=== PATIENT | female | born 1960 | race Caucasian/White ===

== ENCOUNTER → 2020-02-26 | Outpatient (CLI) | payer OTHER ==
[~2020-02-26] VITALS: Ht 165.1 cm; Wt 77.1 kg
[~2020-02-26] MED LIST: LORCET 5-325 M1 EACH PO; PRISTIQ50 M1 PO
[2020-02-26 13:23] VITALS: BP 115/59
--- NOTE | 2020-02-26 14:26 | NUR ---
Pain Clinic Assessment: 1. History of Osteoarthritis: SPINE History of Rheumatoid Arthritis: Not Applicable 2. Height: 5 ft. 5 in. 165.1 cm. Weight: 170.0 lb. oz. 77.112 kg. Patient's BMI: 28.3 3. Vital Signs: BP: 115/59 Pulse: 85 Resp: 16 Temp: 02 Sat: 100 ECG Mon: 4. Pain Intensity: 8 5. Fall Risk: Dizziness: N Needs help standing or walking: N Fallen in the last 3 months: N Fall risk comments: 6. Patient on Blood Thinner: None 7. History of Hypertension: N 8. Opioid Therapy greater than 6 weeks: N Opiate Contract Signed: 9. Risk Assessment Tool Provided: LOW 10. Functional Assessment Tool: 11. Recreational Drug Use: Never Drug Type: Tobacco Use: Current Every Day Smoker Tobacco Type: Cigarettes Amount or Packs/day: 1/2-1 How Many Years: 25 Alcohol Use: Yes Frequency: Special Occasions Quant: 1-2
--- NOTE | 2020-03-05 13:25 | HPC ---
[facility] [place] [address] PAIN MANAGEMENT CONSULTATION Name: TOMEKA CELESET Room #: [facility]#: [id number] Admission: 02/26/20 Attend Phys: Tarah Mendosa MD Discharge: Date of : 64 Report #: [id number] THIS REPORT FOR: cc: Perez Palomares MD, Neal A. MD Brown,Tarah Luz MD ~ CC: Tarah Palomares DATE OF SERVICE: 02/26/2020 CHIEF COMPLAINT: Low back pain with pain down into both legs. HISTORY: The patient is a 59-year-old female who has been experiencing some back pain since 2014. She describes it as an aching piercing stiffness. Her pain is worse when she is lying down. Also, certain activities can exacerbate her discomfort. She notes that use of pain medications have been helpful. She rates her pain as an 8/10 today. She is experiencing some burning, shooting, aching, pulling, gnawing, sharp pain. It is radiating down her right leg and involving her foot. She has tried chiropractic treatment. She has tried physical therapy. Her daughter helped her and is an instructor. She also has a second pain condition. It involves her left arm. She notes that she is having pain that radiates down into her thumb and first finger. The hand pain is problematic, but the back pain is most disconcerting at this time. She did fractured her left wrist in the past. ALLERGIES: MORPHINE. MEDICATIONS: Pristiq 50 mg, Tramadol 50 mg q.4 hours p.r.n., hydrocodone 5/325 one p.o. every 4-6 hours p.r.n. Medications which have been discontinued include Medrol Dosepak. PAST MEDICAL HISTORY: Depression, sciatica involving the right hip and right leg, shoulder pain with pain that radiates down into her left hand. PAST SURGICAL HISTORY: 1. Hernia repair in 06/2000 with . 2. Repeat x 3 in 1990, 1997, and 1999. 3. Tonsils and adenoids in 1966. SOCIAL HISTORY: She stays at home. She has not worked in the last 6 months. REVIEW OF SYSTEMS: Generally good health, fever, night sweats, wears glasses, depression. [address] [address] PAIN MANAGEMENT CONSULTATION Name: ROULATOMEKA Room #: [facility]#: [id number] Admission: 02/26/20 Attend Phys: Tarah Mendosa MD Discharge: Date of : 64 Report #: [id number] LABORATORY DATA: No new laboratory values are available. The patient states that her doctor performed an x-ray, which showed scoliosis and arthritis in the low back area. PAIN CLINIC ASSESSMENT AND PQRS: 1. History of osteoarthritis of the spine. The patient is not being treated for rheumatoid arthritis. 2. Height 5 feet 5 inches, weight 170 pounds, BMI is 28.3. 3. Vital Signs: Blood pressure 115/59, heart rate 85, respiratory rate 16, room air saturation is 100. 4. Pain intensity 8/10. 5. Fall history: The patient has not fallen in the last 3 months. 6. Blood thinner. The patient is not on a blood thinning medication. 7. Hypertension. The patient receives medication from her primary. 8. Risk assessment tool, low for opioid use. 9. Functional assessment tool, 44/70. 10. Recreational drug use. The patient denies. 11. Tobacco: The patient smokes cigarettes, smokes about pack of cigarettes and smoked for the past 25 years. 12. Alcohol: The patient occasionally drinks alcoholic beverages. PHYSICAL EXAMINATION: GENERAL: The patient is a well-developed, well-nourished white female. Appears her stated age. She is alert and oriented x 3. Her affect is appropriate. Speech is fluent. HEENT: Normocephalic, atraumatic. Extraocular eye muscles intact. Sclerae nonicteric. Mucous membranes are moist. NECK: Without adenopathy or JVD. The patient has pain and discomfort in the left arm. Notes some decreased discomfort in the arm. She feels that there might be some discomfort in her elbow. Has occasions where she notes tingling in her thumb and index finger. She lives with chronic arm pain. HEART: Regular rate. ABDOMEN: Nontender. CHEST: Clear. MUSCULOSKELETAL: Pain has some musculoskeletal pain on the right side. It involves the left flank area. Has pain in the lower back portion of her back with pain that radiates down into the right leg in the L4-L5 dermatomal distribution. Has also noticed some pain in the L5-S1 dermatomal distribution. The patient has perceived some weakness in this area. Forward bending was not very problematic. Left and right turning cause some increased discomfort in the right flank area. The patient has perception of some left spasms in her low back area. She is experiencing pain in the lower portion of her back that is radiating down into the left buttocks, posterior thigh and calf area. IMPRESSION: [facility] [address] [place] [address] PAIN MANAGEMENT CONSULTATION Name: TOMEKA CELESTE Room #: [facility]#: [id number] Admission: 02/26/20 Attend Phys: Tarah Mendosa MD Discharge: Date of : 64 Report #: [id number] 1. Lumbar radiculopathy with L5-S1 dermatomal distribution, which is most problematic today. 2. Left arm pain with numbness and tingling down into the thumb and index finger. 3. Depression. 4. Sciatica involving the right hip and right leg, shoulder pain with pain that radiates down into her left hand. RECOMMENDATIONS: We discussed the treatment options with the patient. At this point, the patient is finding that the pain is quite problematic involving her low back and left leg. It is causing difficulty with activities of daily living because of this pain. We would recommend that the patient receive an epidural steroid injection in the L5-S1 area. She will return to the Pain Clinic, at which time she will then undergo an epidural steroid injection. We would like to thank you for letting us participate in her care. We hope she continues to improve. <ELECTRONICALLY SIGNED> By: Tarah Mendosa MD 03/05/20 [id number] Tarah Mendosa MD /JEREMIAH
== END ==
LOC: PAIN 06:59
PROVIDERS: ATTEND Anesthesiology Pain Medicine
DX: M54.17 Radiculopathy, lumbosacral region (principal); M79.601 Pain in right arm; F32.9 Major depressive disorder, single episode, unspecified; M25.551 Pain in right hip; M54.31 Sciatica, right side; Z88.8 Allergy status to other drugs, medicaments and biological substances; Z79.899 Other long term (current) drug therapy

== ENCOUNTER → 2020-03-25 | Outpatient (CLI) | payer OTHER ==
[~2020-03-25] VITALS: Ht 165.1 cm; Wt 81.2 kg
--- NOTE | ~2020-03-25 | HPC ---
[facility] [place] [address] [address] [place] [address] PAIN MANAGEMENT CONSULTATION Name: TOMEKA CELESTE Room #: REG [facility]#: [id number] Admission: 03/25/20 Attend Phys: Tarah Mendosa MD Discharge: Date of : 64 Report #: [id number] THIS REPORT FOR: cc: Perez Palomares MD, Neal A. MD Brown,Tarah Luz MD ~ CC: Tarah Palomares DATE OF SERVICE: 03/25/2020 CHIEF COMPLAINT: "I am still a little bit scared of getting the injection, I would like to try the pills." HISTORY: The patient is a 59-year-old female, who has been followed in the Pain Clinic because of lumbar radiculopathy. She has had pain and problems since 2014. She is now experiencing pain and discomfort that is radiating down into the lower portion of her back with numbness and weakness involving her leg. She is interested in trying a conservative approach. We will have the patient try Medrol Dosepak, a script for this medication has been discussed. We explained that steroid medications can be helpful in decreasing swelling, inflammation, and discomfort associated with nerve irritation. She would like to proceed with that. She will consider an epidural injection, but states that she is somewhat nervous about it. She would like to try the conservative approach first. ALLERGIES: MORPHINE. CURRENT MEDICATIONS: Pristiq 50 mg, tramadol 50 mg q. 4 hours, hydrocodone 5/325 one p.o. q. 4-6 hours. PAIN CLINIC ASSESSMENT AND PQRS: 1. History of osteoarthritis in the spine. The patient is not being treated for rheumatoid arthritis. 2. Height is 5 feet 5 inches, weight 179, BMI is 29. 3. Vital Signs: Blood pressure 122/68, pulse 79, respiratory rate 16, room air saturation 98%. 4. Pain intensity: 7/10. 5. Fall history: The patient has not fallen since we saw her last. 6. Blood thinner: The patient is not on a blood thinning medication. 7. Hypertension: The patient is not being treated for hypertension. 8. Opioids greater than 6 weeks: The patient receives medication from one source from Pain Clinic. 9. Risk assessment tool: Low for opioid use. 10. Functional assessment tool: 70. 11. Recreational drug use: The patient denies. 12. Tobacco: The patient smokes one-half pack of cigarettes per day. [address] [address] PAIN MANAGEMENT CONSULTATION Name: TOMEKA CELESTE Room #: REG [facility]#: [id number] Admission: 03/25/20 Attend Phys: Tarah Mendosa MD Discharge: Date of : 64 Report #: [id number] 13. Alcohol: The patient drinks on rare occasions. PHYSICAL EXAMINATION: GENERAL: The patient is a well-developed, well-nourished, white female. Appears her stated age. She is alert and oriented x 3. Her affect is appropriate. Speech is fluent. HEENT: Normocephalic, atraumatic. Extraocular eye muscles intact. The patient is wearing a facial covering. EXTREMITIES: The patient does complain of some pain and discomfort in the left arm. She notes some discomfort in the area down into her wrist. She has noted some numbness and tingling in her finger and index finger. HEART: Regular rate. ABDOMEN: Nontender. CHEST: Clear. MUSCULOSKELETAL: The patient with some right-sided pain that involves the left flank. The patient has pain and discomfort that radiates down in the L4-L5 and the L5-S1 dermatomal distribution. The patient has pain that is predominantly in the L5-S1 dermatomal distribution. IMPRESSION: 1. Lumbar radiculopathy at L5-S1 dermatomal distribution. 2. Left arm pain with numbness and tingling into the thumb and index finger. 3. Depression. 4. Sciatica involving the right hip and right leg. RECOMMENDATIONS: We will continue with her current conservative approach. A script for hydrocodone 5/325 one p.o. t.i.d. has been written for the next 2 weeks. The patient will also consider a Medrol Dosepak. Hopefully, she will find that this is beneficial. Should her pain continue to be problematic in spite of this, she will consider possibility of an epidural steroid injection in the future. We would like to thank you for letting us participate in her care. We hope she continues to improve. By: [id number] Tarah Mendosa MD /uday
[2020-03-25 08:31] VITALS: BP 122/68
--- NOTE | 2020-03-25 08:40 | NUR ---
Pain Clinic Assessment: 1. History of Osteoarthritis: SPINE History of Rheumatoid Arthritis: Not Applicable 2. Height: 5 ft. 5 in. 165.1 cm. Weight: 179.0 lb. oz. 81.194 kg. Patient's BMI: 29.8 3. Vital Signs: BP: 122/68 Pulse: 79 Resp: 16 Temp: 02 Sat: 98 ECG Mon: 4. Pain Intensity: 7 5. Fall Risk: Dizziness: N Needs help standing or walking: N Fallen in the last 3 months: N Fall risk comments: 6. Patient on Blood Thinner: None 7. History of Hypertension: N 8. Opioid Therapy greater than 6 weeks: N Opiate Contract Signed: 9. Risk Assessment Tool Provided: LOW 10. Functional Assessment Tool: 11. Recreational Drug Use: Never Drug Type: Tobacco Use: Current Every Day Smoker Tobacco Type: Cigarettes Amount or Packs/day: 1/2 PACK How Many Years: Alcohol Use: Yes Frequency: Special Occasions Quant: 1
== END ==
LOC: PAIN 03-04 06:51
PROVIDERS: ATTEND Anesthesiology Pain Medicine
DX: M54.17 Radiculopathy, lumbosacral region (principal); M79.602 Pain in left arm; R20.2 Paresthesia of skin; F32.9 Major depressive disorder, single episode, unspecified; M54.41 Lumbago with sciatica, right side; Z88.5 Allergy status to narcotic agent; Z79.899 Other long term (current) drug therapy

== ENCOUNTER → 2020-04-24 | Outpatient (CLI) | payer OTHER ==
[~2020-04-24] VITALS: Ht 165.1 cm; Wt 82.6 kg
[~2020-04-24] MED LIST changes: +HYDROCODON-ACE1 EAC7 PO; +MEDROLDOSEPACK PO
--- NOTE | ~2020-04-24 | HPC ---
[facility] [address] [address] PAIN MANAGEMENT CONSULTATION Name: TOMEKA CELESTE Room #: REG [facility].#: [id number] Admission: 04/24/20 Attend Phys: Tarah Mendosa MD Discharge: Date of : 64 Report #: [id number] CC: Tarah Palomares DATE OF SERVICE: 05/13/2020 CHIEF COMPLAINT: Mid back pain. HISTORY: The patient is a 60-year-old female who has been followed in the pain clinic. She complains of lumbar radicular pain. She has had problems since 2014. Notes pain radiates down into the back with numbness and tingling involving her legs. She has tried a conservative approach. The patient has returned today and rates her pain as an 8/10. She has pain in the low back that radiates down into her right leg. She describes it as sharp, aching sore and sensation of pressure. Pain is exacerbated by standing, lying down, walking and with other activities. Notes that medications and heat are helpful. ALLERGIES: MORPHINE. CURRENT MEDICATIONS: Pristiq 50 mg, tramadol 50 mg q. 4 hours, hydrocodone 5/325 one p.o. every 4-6 hours. PAIN CLINIC ASSESSMENT AND PQRS: 1. The patient has a history of osteoarthritis of the spine. She is not being treated for rheumatoid arthritis. 2. Height 5 feet 5 inches, weight 182 pounds, BMI is 30. 3. Vital Signs: Blood pressure 118/58, pulse 75, respiratory rate 16, room air saturation 100%. 4. Pain intensity 8/10. 5. Fall history: The patient has not fallen in the last 3 months. 6. Blood thinner. The patient is not on a blood thinning medication. 7. Hypertension. The patient is not being treated for hypertension. 8. Opioids greater than 6 weeks. The patient receives medications from one source. 9. Risk assessment tool, low for opioid use. 10. Functional assessment tool, 44/70. 11. Recreational drug use: The patient denies. 12. Tobacco: The patient has smoked 1-1/2 pack of cigarettes per day, has smoked for 20 years. 13. Alcohol. The patient denies frequent use of alcoholic beverages. PHYSICAL EXAMINATION: GENERAL: The patient is a well-developed, well-nourished white female. Appears her stated age. She is alert and oriented x 3. Her affect is appropriate. Speech is fluent. HEENT: Normocephalic, atraumatic. Extraocular eye muscles intact. The patient is wearing a facial covering. CHEST: Clear. HEART: Regular rate. ABDOMEN: Nontender. EXTREMITIES: Upper extremity muscle strength judged to be 5-/5 for the major muscle groups in the upper extremity. Has some discomfort in her wrist. Has had some numbness and tingling down into her finger on the left arm. Lower muscle strength judged to be 5/5 for the major muscle groups in the lower extremity. The patient has pain on the right side and left side flank pain. The patient has pain that radiates in the L5-S1 dermatomal distribution and some component in the L4-L5 components. IMPRESSION: 1. Lumbar radiculopathy with L5-S1 dermatomal distribution. 2. Left arm pain with numbness and tingling involving the thumb and index finger. 3. Depression. 4. Sciatica involving the right hip and left leg. RECOMMENDATIONS: We discussed treatment options with the patient. We will continue with hydrocodone to help control the pain. The patient will consider an epidural steroid injection. The patient will try an additional Medrol Dosepak. She will continue with hydrocodone 10/325 one p.o. t.i.d. We would like to thank you for letting us participate in her care. We hope she continues to improve. By: [id number] MD DINESH Corrales
[2020-04-24 09:58] VITALS: BP 118/58
--- NOTE | 2020-04-24 10:08 | NUR ---
Pain Clinic Assessment: 1. History of Osteoarthritis: SPINE History of Rheumatoid Arthritis: Not Applicable 2. Height: 5 ft. 5 in. 165.1 cm. Weight: 182.0 lb. oz. 82.555 kg. Patient's BMI: 30.3 3. Vital Signs: BP: 118/58 Pulse: 75 Resp: 16 Temp: 02 Sat: 100 ECG Mon: 4. Pain Intensity: 8 5. Fall Risk: Dizziness: N Needs help standing or walking: N Fallen in the last 3 months: N Fall risk comments: 6. Patient on Blood Thinner: None 7. History of Hypertension: N 8. Opioid Therapy greater than 6 weeks: N Opiate Contract Signed: 9. Risk Assessment Tool Provided: LOW 10. Functional Assessment Tool: 11. Recreational Drug Use: Never Drug Type: Tobacco Use: Current Every Day Smoker Tobacco Type: Cigarettes Amount or Packs/day: 1/2 ppd How Many Years: 20 Alcohol Use: No Frequency: Quant:
== END ==
LOC: PAIN 06:46
PROVIDERS: ATTEND Anesthesiology Pain Medicine
DX: M54.17 Radiculopathy, lumbosacral region (principal); M54.31 Sciatica, right side; F32.9 Major depressive disorder, single episode, unspecified; R20.2 Paresthesia of skin; M79.601 Pain in right arm; Z88.8 Allergy status to other drugs, medicaments and biological substances; Z79.899 Other long term (current) drug therapy

== ENCOUNTER → 2020-05-22 | Outpatient (CLI) | payer OTHER ==
[~2020-05-22] VITALS: Ht 165.1 cm; Wt 81.7 kg
--- NOTE | ~2020-05-22 | HPC ---
[facility] [place] [place] [address] [place] [address] PAIN MANAGEMENT CONSULTATION Name: TOMEKA CELESTE Room #: REG [facility].#: [id number] Admission: 05/22/20 Attend Phys: Sonali Aiken Discharge: Date of : 64 Report #: [id number] THIS REPORT FOR: cc: Perez Palomares MD, Neal A. MD Hocker,Sonali BRANDT ~ CC: Sonali Palomares DATE OF SERVICE: 05/22/2020 CHIEF COMPLAINT: Mid back pain, lumbar radiculopathy. HISTORY OF PRESENT ILLNESS: This is a 60-year-old female who returns to the pain clinic today for refill of her opioid medications. Today, she is reporting a pain of 8-1/2 mostly located in her low back that radiates down her outer aspect of her right leg to her ankle. She also has been complaining of some ongoing right shoulder pain. It is an aching, pressure that is worse with standing, walking and activity. She believes the hydrocodone is beneficial as well as heat. She does report that the Medrol Dosepak that Dr. Mendosa prescribed in April was beneficial and she is wondering about having another pack sent today. ALLERGIES: MORPHINE. CURRENT LIST OF MEDICATIONS: Hydrocodone 5/325 p.r.n., Pristiq. PQRS: 1. She has a history of osteoarthritis in her spine, is not being treated for rheumatoid arthritis. 2. Height is 5 feet 5 inches, weight is 180, BMI is 30. Vital signs 126/65, pulse is 70, respirations 16, oxygen sat is 96. Pain score is 8-1/2. 3. Denies dizziness. Does not need help walking or standing, has not fallen in the last 3 months. 4. The patient is not on any blood thinners and no medicines for hypertension. 5. Opioid therapy is greater than [address] an opioid contract in her chart for her to sign at her next visit. 6. Risk assessment is low. Functional assessment is 44/70. 7. Recreational drug use, she denies. She is a current smoker of half a pack of cigarettes a day and denies any alcohol. According to the prescription monitoring system, the patient is filling her hydrocodone effectively. Per this report she had tramadol that she has filled from [facility], who is a [facility]. We will approach this at her next appointment. [address] [address] PAIN MANAGEMENT CONSULTATION Name: TOMEKA CELESTE Sindy Room #: REG [facility]#: [id number] Admission: 05/22/20 Attend Phys: Sonali Aiken Discharge: Date of : 64 Report #: [id number] PHYSICAL EXAMINATION: GENERAL: This is a well-developed, well-nourished white female who appears her stated age, placing her current pain score at 8.5 today. She is answering all my questions appropriately and her affect is appropriate. HEENT: Normocephalic, atraumatic. Extraocular eye muscles are intact. EXTREMITIES: Upper extremity strength is symmetrical at 5/5. She does have some right shoulder pain and tenderness in her right trapezius muscle. Pain is in her lumbosacral region that does radiate down her right leg the outer aspect to her ankle following the L4-L5 and L5-S1 dermatomal distribution with discoloration in her lower right leg from her previous shingles outbreak. No lesions present today. IMPRESSION: 1. Lumbar radiculopathy following the L4-L5 distribution. 2. Right shoulder pain and trapezius myofascial pain. 3. Depression. PLAN: 1. We will continue the patient on her hydrocodone 5/325. She does find these beneficial in helping reduce some of her pain. We will have Dr. Mendosa send electronically #90 tablets. 2. We did discuss her request for Medrol Dosepak refill and discuss that the complications of too much steroid such as osteoporosis or adrenal gland insufficiencies. Presently, we would like to hold off on any further steroids. 3. We did discuss in the future if she continues to have this lumbar radiculopathy that is increasing. Dr. Royce Mendosa could perform a lumbar epidural steroid injection. The patient may schedule her next month appointment with Dr. Mendosa for this injection or myself for further medications. 4. We did discuss anti-inflammatories such as Aleve, ibuprofen or Advil, which are all [id number] or Voltaren gel to her right shoulder. These are nonsteroidal anti-inflammatories instead of the steroid Dosepak. 5. The patient is seen in collaboration with Dr. Mendosa. The patient will return in 1 month. At that time, we will obtain opioid contract from this patient. By: [id number] Sonali Aiken /uday
[2020-05-22 09:09] VITALS: BP 126/65
--- NOTE | 2020-05-22 09:18 | NUR ---
Pain Clinic Assessment: 1. History of Osteoarthritis: SPINE History of Rheumatoid Arthritis: Not Applicable 2. Height: 5 ft. 5 in. 165.1 cm. Weight: 180.2 lb. oz. 81.738 kg. Patient's BMI: 30.0 3. Vital Signs: BP: 126/65 Pulse: 70 Resp: 16 Temp: 02 Sat: 96 ECG Mon: 4. Pain Intensity: 8.5 5. Fall Risk: Dizziness: N Needs help standing or walking: N Fallen in the last 3 months: N Fall risk comments: 6. Patient on Blood Thinner: None 7. History of Hypertension: N 8. Opioid Therapy greater than 6 weeks: N Opiate Contract Signed: 9. Risk Assessment Tool Provided: LOW 10. Functional Assessment Tool: 11. Recreational Drug Use: Never Drug Type: Tobacco Use: Current Every Day Smoker Tobacco Type: Cigarettes Amount or Packs/day: 1/2PPD How Many Years: 20 Alcohol Use: No Frequency: Quant:
== END ==
LOC: PAIN 06:49
PROVIDERS: ATTEND Clinical Nurse Specialist Adult Health
DX: M54.16 Radiculopathy, lumbar region (principal); M25.511 Pain in right shoulder; M79.10 Myalgia, unspecified site; F32.9 Major depressive disorder, single episode, unspecified; Z88.8 Allergy status to other drugs, medicaments and biological substances; Z79.899 Other long term (current) drug therapy

== ENCOUNTER → 2020-06-19 | Outpatient (CLI) | payer OTHER ==
[~2020-06-19] VITALS: Ht 165.1 cm; Wt 83.1 kg
[2020-06-19 08:26] VITALS: BP 126/66
--- NOTE | 2020-06-19 08:42 | NUR ---
Pain Clinic Assessment: 1. History of Osteoarthritis: SPINE History of Rheumatoid Arthritis: Not Applicable 2. Height: 5 ft. 5 in. 165.1 cm. Weight: 183.2 lb. oz. 83.099 kg. Patient's BMI: 30.5 3. Vital Signs: BP: 126/66 Pulse: 81 Resp: 14 Temp: 02 Sat: 97 ECG Mon: 4. Pain Intensity: 8 5. Fall Risk: Dizziness: N Needs help standing or walking: N Fallen in the last 3 months: N Fall risk comments: 6. Patient on Blood Thinner: None 7. History of Hypertension: N 8. Opioid Therapy greater than 6 weeks: N Opiate Contract Signed: 9. Risk Assessment Tool Provided: LOW 10. Functional Assessment Tool: 11. Recreational Drug Use: Never Drug Type: Tobacco Use: Current Every Day Smoker Tobacco Type: Cigarettes Amount or Packs/day: 1/2-1 ppd How Many Years: 20 Alcohol Use: No Frequency: Quant:
--- NOTE | 2020-06-22 07:54 | HPC ---
[facility] [address] [place] [address] PAIN MANAGEMENT CONSULTATION Name: TOMEKA CELESTE Room #: REG [facility] Chasity#: [id number] Admission: 06/19/20 Attend Phys: Sonali Aiken Discharge: Date of : 64 Report #: [id number] THIS REPORT FOR: cc: Perez Palomares MD, Neal A. MD Hocker,Sonali BRANDT ~ DATE OF SERVICE: 06/19/2020 CHIEF COMPLAINT: Mid back pain and lumbar radiculopathy. HISTORY OF PRESENT ILLNESS: This is a pleasant 60-year-old female who returns today for renewal of her hydrocodone. Today, the patient is reporting a pain score of 8/10 without her medications. She believes that her pain is significantly decreased almost completely gone when she does take her hydrocodone. Her pain is located in her lower back that radiates down her right leg. It is an aching, sharp pain and pressure sensation, especially when she is standing or very active and walking. Again, she believes the medication as well as using a TENS unit or heat have been beneficial. She denies any problems with constipation as a result of her opioid medications. The patient is questioning the use of an inversion table that does have a pulsating lights, her has found this has been beneficial for his pain and she is wondering if that may be beneficial for her. I encouraged her to try that in the next month and see if she does find the pulsating of a TENS unit beneficial, so she may find this helpful as well in relieving some of her low back pain. ALLERGIES: MORPHINE. CURRENT LIST OF MEDICATIONS: Hydrocodone 5/325 and Pristiq. PQRS: 1. She has osteoarthritic changes in her spine. She is not being treated for rheumatoid arthritis. 2. Height is 5 feet 5 inches, weight is 183, BMI is 30. 3. Vital signs; blood pressure 126/66, pulse is 81, respirations 14, and oxygen sat is 97%. 4. Pain score is 8/10. 5. Fall risk. Denies dizziness, does not need help walking or standing, has not fallen in the last 3 months. 6. The patient is not on any blood thinners or medicine for hypertension. 7. Her opioid therapy is greater than 6 weeks. We will have her sign an opioid signed contract today. Her risk assessment is low. Functional assessment is 44/70. 8. Recreational drug use, she denies. She is a current smoker of a half to 1 pack of cigarettes a day [place] [address] PAIN MANAGEMENT CONSULTATION Name: TOMEKA CELESTE Room #: REG [facility] Chasity#: [id number] Admission: 06/19/20 Attend Phys: Sonali Aiken Discharge: Date of : 64 Report #: [id number] According to the prescription monitoring system, she is filling our medicines appropriately, but there is prescriptions filled for tramadol. It is from a [facility] physician. The patient reports it is from her vet for her dog. I encouraged her to have them change this at the pharmacy under her pets name or to fill it at her veterinary's pharmacy, so it does not report under her prescription monitoring report under her name. The patient verbalizes understanding. PHYSICAL EXAMINATION: GENERAL: This is alert and orientated, well-developed, well-nourished 60-year-old female who is rating her pain score from 0-8 today. She is a good historian and her affect is appropriate. HEENT: Normocephalic, atraumatic. Extraocular eye muscles are intact. She is wearing a facial covering. HEART: Regular rate. MUSCULOSKELETAL: The patient has right sided pain from her lower back that does radiate down the L4-L5 and L5-S1 dermatomal distribution to her knee. Some ongoing left arm, shoulder pain as well, worse with abduction and tenderness in her right trapezius muscle. IMPRESSION: 1. Lumbar radiculopathy following the L4-L5 and L5-S1 dermatomal distribution. 2. Right shoulder pain and trapezius myofascial pain. 3. Depression. 4. Opioid medications under written agreement. We reviewed the fact that opiate medications are being used to provide analgesia adequate to support activities of daily living, not attempting to achieve a specific pain score on the 0-10 Visual Analog Scale. The current opiate medications are providing sufficient analgesia to allow the patient to participate in activities of daily living. The patient is not exhibiting any aberrant behavior suggestive of drug diversion. The patient is not having any adverse reactions to medications. The patient is not suffering from daytime somnolence or mental acuity changes. The patient is managing opiate-induced constipation with appropriate tows-cii-yceuqfy agents and dietary considerations. The patient was counseled on concern for caution with operating a motor vehicle while using opiate medications. PLAN: 1. We discussed treatment options with the patient today. The patient will sign an opioid agreement with our physicians today and will discuss the tramadol fill with her pharmacy and change locations for filling her dog's medications. 2. Scripts will be given today for hydrocodone 5/325, #90. She finds this very beneficial in controlling almost all of her pain. Appointment will be made with [address] [address] PAIN MANAGEMENT CONSULTATION Name: TOMEKA CELESTE Room #: REG ELS[facility] SilvaOvi#: [id number] Admission: 06/19/20 Attend Phys: Sonali Aiken Discharge: Date of : 64 Report #: [id number] us in 1 month. At that time, we will collect a random drug screen on this patient. She is seen monthly under the collaboration with Dr. Mendosa. <ELECTRONICALLY SIGNED> By: Sonali Aiken 06/22/20 0754 [id number] Sonali Aiken /nt
== END ==
LOC: PAIN 06:41
PROVIDERS: ATTEND Clinical Nurse Specialist Adult Health
DX: M54.16 Radiculopathy, lumbar region (principal); M25.511 Pain in right shoulder; F32.9 Major depressive disorder, single episode, unspecified; Z79.891 Long term (current) use of opiate analgesic

== ENCOUNTER → 2020-07-17 | Outpatient (CLI) | payer OTHER ==
[~2020-07-17] VITALS: Ht 165.1 cm; Wt 83.6 kg
[2020-07-17 09:04] VITALS: BP 110/62
--- NOTE | 2020-07-17 09:19 | NUR ---
Pain Clinic Assessment: 1. History of Osteoarthritis: SPINE History of Rheumatoid Arthritis: Not Applicable 2. Height: 5 ft. 5 in. 165.1 cm. Weight: 184.4 lb. oz. 83.643 kg. Patient's BMI: 30.7 3. Vital Signs: BP: 110/62 Pulse: 78 Resp: 14 Temp: 02 Sat: 97 ECG Mon: 4. Pain Intensity: 8 TO 9 5. Fall Risk: Dizziness: N Needs help standing or walking: N Fallen in the last 3 months: Y Fall risk comments: 6. Patient on Blood Thinner: None 7. History of Hypertension: N 8. Opioid Therapy greater than 6 weeks: Y Opiate Contract Signed: 06/19/20 9. Risk Assessment Tool Provided: LOW 10. Functional Assessment Tool: 11. Recreational Drug Use: Never Drug Type: Tobacco Use: Current Every Day Smoker Tobacco Type: Cigarettes Amount or Packs/day: 1/2 TO 1 How Many Years: Alcohol Use: Yes Frequency: Special Occasions Quant: 1
== END ==
LOC: PAIN 06:50
PROVIDERS: ATTEND Anesthesiology Pain Medicine
DX: M54.16 Radiculopathy, lumbar region (principal); F32.9 Major depressive disorder, single episode, unspecified; Z79.891 Long term (current) use of opiate analgesic

== ENCOUNTER → 2020-08-14 | Outpatient (CLI) | payer OTHER ==
[~2020-08-14] VITALS: Ht 165.1 cm; Wt 82.6 kg
[2020-08-14 08:21] VITALS: BP 133/66
--- NOTE | 2020-08-14 08:28 | NUR ---
Pain Clinic Assessment: 1. History of Osteoarthritis: SPINE History of Rheumatoid Arthritis: Not Applicable 2. Height: 5 ft. 5 in. 165.1 cm. Weight: 182.0 lb. oz. 82.555 kg. Patient's BMI: 30.3 3. Vital Signs: BP: 133/66 Pulse: 82 Resp: 16 Temp: 02 Sat: 98 ECG Mon: 4. Pain Intensity: 8 5. Fall Risk: Dizziness: N Needs help standing or walking: N Fallen in the last 3 months: N Fall risk comments: 6. Patient on Blood Thinner: None 7. History of Hypertension: N 8. Opioid Therapy greater than 6 weeks: Y Opiate Contract Signed: 06/19/20 9. Risk Assessment Tool Provided: LOW 10. Functional Assessment Tool: 11. Recreational Drug Use: Never Drug Type: Tobacco Use: Current Every Day Smoker Tobacco Type: Cigarettes Amount or Packs/day: 1/2 PACK How Many Years: Alcohol Use: No Frequency: Quant:
== END ==
LOC: PAIN 06:58
PROVIDERS: ATTEND Anesthesiology Pain Medicine
DX: M54.5 Low back pain (principal); M79.602 Pain in left arm; F32.9 Major depressive disorder, single episode, unspecified; F11.20 Opioid dependence, uncomplicated; Z87.39 Personal history of other diseases of the musculoskeletal system and connective tissue; Z88.8 Allergy status to other drugs, medicaments and biological substances; Z79.899 Other long term (current) drug therapy

== ENCOUNTER → 2020-09-11 | Outpatient (CLI) | payer OTHER ==
[~2020-09-11] VITALS: Ht 165.1 cm; Wt 83.5 kg
[2020-09-11 08:06] VITALS: BP 102/57
--- NOTE | 2020-09-11 08:12 | NUR ---
Pain Clinic Assessment: 1. History of Osteoarthritis: SPINE History of Rheumatoid Arthritis: Not Applicable 2. Height: 5 ft. 5 in. 165.1 cm. Weight: 184.0 lb. oz. 83.462 kg. Patient's BMI: 30.6 3. Vital Signs: BP: 102/57 Pulse: 83 Resp: 16 Temp: 02 Sat: 98 ECG Mon: 4. Pain Intensity: 8 5. Fall Risk: Dizziness: N Needs help standing or walking: N Fallen in the last 3 months: N Fall risk comments: 6. Patient on Blood Thinner: None 7. History of Hypertension: N 8. Opioid Therapy greater than 6 weeks: Y Opiate Contract Signed: 06/19/20 9. Risk Assessment Tool Provided: LOW 10. Functional Assessment Tool: 11. Recreational Drug Use: Never Drug Type: Tobacco Use: Current Every Day Smoker Tobacco Type: Amount or Packs/day: How Many Years: Alcohol Use: No Frequency: Quant:
== END ==
LOC: PAIN 06:42
PROVIDERS: ATTEND Anesthesiology Pain Medicine
DX: M54.5 Low back pain (principal); M25.511 Pain in right shoulder; M79.602 Pain in left arm; F32.9 Major depressive disorder, single episode, unspecified; Z87.39 Personal history of other diseases of the musculoskeletal system and connective tissue; F11.20 Opioid dependence, uncomplicated; F17.200 Nicotine dependence, unspecified, uncomplicated

== ENCOUNTER → 2020-10-07 | Outpatient (CLI) | payer OTHER ==
[~2020-10-07] VITALS: Ht 165.1 cm; Wt 85.6 kg
[2020-10-07 09:31] VITALS: BP 121/65
--- NOTE | 2020-10-07 09:36 | NUR ---
Pain Clinic Assessment: 1. History of Osteoarthritis: SPINE History of Rheumatoid Arthritis: Not Applicable 2. Height: 5 ft. 5 in. 165.1 cm. Weight: 188.8 lb. oz. 85.639 kg. Patient's BMI: 31.4 3. Vital Signs: BP: 121/65 Pulse: 108 Resp: 14 Temp: 02 Sat: 98 ECG Mon: 4. Pain Intensity: 8 5. Fall Risk: Dizziness: N Needs help standing or walking: N Fallen in the last 3 months: N Fall risk comments: 6. Patient on Blood Thinner: None 7. History of Hypertension: N 8. Opioid Therapy greater than 6 weeks: Y Opiate Contract Signed: 06/19/20 9. Risk Assessment Tool Provided: LOW 10. Functional Assessment Tool: 11. Recreational Drug Use: Never Drug Type: Tobacco Use: Current Every Day Smoker Tobacco Type: Amount or Packs/day: How Many Years: Alcohol Use: No Frequency: Quant:
--- NOTE | 2020-10-08 08:19 | HPC ---
[facility] [address] [place] [address] PAIN MANAGEMENT CONSULTATION Name: TOMEKA CELESTE [id number] Admission: 10/07/20 Attend Phys: Sonali Aiken Discharge: Date of : 64 Report #: [id number] THIS REPORT FOR: cc: Perez Palomares MD, Neal A. MD Hocker,Sonali BRANDT ~ DATE OF SERVICE: 10/07/2020 CHIEF COMPLAINT: Low back pain with lumbar radiculopathy. HISTORY OF PRESENT ILLNESS: This is a 60-year-old female who returns to the pain clinic today for renewal of her medications. Today, she is rating her pain score quite high at 8/10. She reports being active in the yard over the weekend, guarding trying to get everything ready for spring and summer. She feels that she is over done it and caused significant pain. She reports most of her pain is located in her low back radiating down her right leg to her calf. She has also some right shoulder pain. She finds her medications beneficial as well as stretching and using her TENS unit and denies any constipation or daytime somnolence. Today, she would like refills of her hydrocodone and wondering if she may come less frequently than monthly visits. The patient reports at this time, she has no plans to receive the COVID vaccine. She may consider it in the future. ALLERGIES: MORPHINE. CURRENT LIST OF MEDICATIONS: Hydrocodone 5/325 t.i.d. p.r.sarah and Primagdalena. PQRS: 1. She has history of osteoarthritis in her spine. Denies any rheumatoid arthritis. 2. Height is 5 feet 5 inches, weight is 188, BMI is 31. 3. Vital signs 121/65, pulse is 108, respirations 14, oxygen sat is 98%. 4. Pain score is 8/10. 5. Denies dizziness, does not need help walking or standing, has not fallen in the last 3 months. 6. The patient is not on any blood thinners or medicine for hypertension. 7. Opioid therapy is greater than 6 weeks; therefore, an opioid signed contract is on the chart. 8. Risk assessment is low. Functional assessment is 44/70. 9. Recreational drug use, she denies. She is a current smoker and does not drink alcohol. According to the prescription monitoring system, the patient is due to fill her medications this week, filling them in a timely fashion. Her morphine milliequivalent is 15 MMEs per day. There is a recent drug [place] [address] PAIN MANAGEMENT CONSULTATION Name: TOMEKA CELESTE Room #: REG Anthony Gaspar#: [id number] Admission: 10/07/20 Attend Phys: Sonali Aiken Discharge: Date of : 64 Report #: [id number] that is appropriate for her medications as well. It does show KRATOM in her urine and we will discuss that further at her next visit that is a substance that is [id number]. PHYSICAL EXAMINATION: GENERAL: This is alert and orientated, pleasant 60-year-old female who appears her stated age, rating her pain score today at 8/10. She is a good historian, appears her stated age. HEENT: Normocephalic, atraumatic. Extraocular eye muscles are intact. Sclerae are nonintrinsic. She is wearing a mask. NECK: Without adenopathy or JVD. MUSCULOSKELETAL: She is without significant scoliosis, kyphosis or lordosis. Her upper and lower extremity strength are symmetrical at 5/5. She has discomfort in her lumbosacral region of her back that is radiating down her right leg to her calf following the L4-L5 dermatomal distribution. Flexion and extension increases her pain. Radiculopathy at the L4-L5 and L5-S1 dermatomal distribution. IMPRESSION: 1. Radiculopathy at the L4-L5 and L5-S1 dermatomal distribution. 2. Depression. 3. Low back pain. 4. Complex opioid medication management under written agreement. We reviewed the fact that opiate medications are being used to provide analgesia adequate to support activities of daily living, not attempting to achieve a specific pain score on the 0-10 Visual Analog Scale. The current opiate medications are providing sufficient analgesia to allow the patient to participate in activities of daily living. The patient is not exhibiting any aberrant behavior suggestive of drug diversion. The patient is not having any adverse reactions to medications. The patient is not suffering from daytime somnolence or mental acuity changes. The patient is managing opiate-induced constipation with appropriate nxfl-[id number]-rybdwcp agents and dietary considerations. The patient was counseled on concern for caution with operating a motor vehicle while using opiate medications. PLAN: 1. We discussed treatment options with the patient today. The patient finds her hydrocodone very beneficial allowing her to be as active as she would like. She was overly active and that is causing increased pain in her musculature in the past few days, she has been utilizing her TENS unit as well as stretching to help with his increasing pain. We did discuss allowing the patient to come bimonthly to see us in the clinic. She has been seen on a monthly basis since March with no deviation in her fills. We will offer her 2 prescriptions, one to fill today and one to fill in 4 weeks. These will be sent electronically [facility] [address] [address] PAIN MANAGEMENT CONSULTATION Name: ROULATOMEKA Sindy Room #: REG ELSY Gaspar#: [id number] Admission: 10/07/20 Attend Phys: Sonali Aiken Discharge: Date of : 64 Report #: [id number] Mendosa for her hydrocodone 5/325, #90. I did explain and encouraged the patient to call in a timely fashion for her next appointment at the end of November. 2. The patient at this time is not willing to have the COVID vaccine. The patient may change her mind in the future, but as of this time, she is not planning on being vaccinated. Time spent with the patient in consultation, reviewing recent studies and clinical notes as well as physician reports, physical examination in correlation of findings and medical documentation determine treatments, 12 minutes. Time spent in preparation for appointment reviewing prescription monitoring system reports, reviewing previous records proposed treatment options and reviewing current medications, 5 minutes. Time spent preparing and sending electronic prescriptions discussion with collaborating physician, Dr. Mendosa and documentation of visit and plan of treatment, 8 minutes. Total time spent 25 minutes. <ELECTRONICALLY SIGNED> By: Sonali Aiken 10/08/20 0819 [id number] 31 Sonali Aiken /nt
== END ==
LOC: PAIN 06:51
PROVIDERS: ATTEND Clinical Nurse Specialist Adult Health
DX: M54.17 Radiculopathy, lumbosacral region (principal); F32.9 Major depressive disorder, single episode, unspecified; F11.20 Opioid dependence, uncomplicated; Z88.8 Allergy status to other drugs, medicaments and biological substances; Z79.899 Other long term (current) drug therapy

== ENCOUNTER → 2020-12-04 | Outpatient (CLI) | payer BC, OTHER ==
[~2020-12-04] VITALS: Ht 165.1 cm; Wt 85.1 kg
[2020-12-04 09:19] VITALS: BP 113/41
--- NOTE | 2020-12-04 09:31 | NUR ---
Pain Clinic Assessment: 1. History of Osteoarthritis: SPINE History of Rheumatoid Arthritis: Not Applicable 2. Height: 5 ft. 5 in. 165.1 cm. Weight: 187.6 lb. oz. 85.095 kg. Patient's BMI: 31.2 3. Vital Signs: BP: 113/41 Pulse: 84 Resp: 16 Temp: 02 Sat: 98 ECG Mon: 4. Pain Intensity: 8 5. Fall Risk: Dizziness: N Needs help standing or walking: N Fallen in the last 3 months: N Fall risk comments: 6. Patient on Blood Thinner: None 7. History of Hypertension: N 8. Opioid Therapy greater than 6 weeks: Y Opiate Contract Signed: 06/19/20 9. Risk Assessment Tool Provided: LOW 10. Functional Assessment Tool: 11. Recreational Drug Use: Never Drug Type: Tobacco Use: Current Every Day Smoker Tobacco Type: Amount or Packs/day: 1/2 PK How Many Years: Alcohol Use: No Frequency: Quant:
== END ==
LOC: PAIN 07:20
PROVIDERS: ATTEND Anesthesiology Pain Medicine
DX: G89.29 Other chronic pain (principal); M54.5 Low back pain; M79.602 Pain in left arm; R20.0 Anesthesia of skin; F32.9 Major depressive disorder, single episode, unspecified; F17.200 Nicotine dependence, unspecified, uncomplicated; Z88.8 Allergy status to other drugs, medicaments and biological substances; Z79.891 Long term (current) use of opiate analgesic; Z79.899 Other long term (current) drug therapy

== ENCOUNTER → 2021-01-29 | Outpatient (CLI) | payer BC, OTHER ==
[~2021-01-29] VITALS: Ht 165.1 cm; Wt 83.6 kg
[2021-01-29 09:15] VITALS: BP 106/76
--- NOTE | 2021-01-29 09:36 | NUR ---
Pain Clinic Assessment: 1. History of Osteoarthritis: SPINE History of Rheumatoid Arthritis: Not Applicable 2. Height: 5 ft. 5 in. 165.1 cm. Weight: 184.2 lb. oz. 83.553 kg. Patient's BMI: 30.7 3. Vital Signs: BP: 106/76 Pulse: 79 Resp: 16 Temp: 02 Sat: 99 ECG Mon: 4. Pain Intensity: 8 5. Fall Risk: Dizziness: N Needs help standing or walking: N Fallen in the last 3 months: N Fall risk comments: 6. Patient on Blood Thinner: None 7. History of Hypertension: N 8. Opioid Therapy greater than 6 weeks: Y Opiate Contract Signed: 06/19/20 9. Risk Assessment Tool Provided: LOW 10. Functional Assessment Tool: 11. Recreational Drug Use: Never Drug Type: Tobacco Use: Current Every Day Smoker Tobacco Type: Amount or Packs/day: How Many Years: Alcohol Use: No Frequency: Quant:
== END ==
LOC: PAIN 06:47
PROVIDERS: ATTEND Anesthesiology Pain Medicine
DX: M54.17 Radiculopathy, lumbosacral region (principal); F32.9 Major depressive disorder, single episode, unspecified; Z79.899 Other long term (current) drug therapy; Z79.891 Long term (current) use of opiate analgesic

== ENCOUNTER → 2021-03-26 | Outpatient (CLI) | payer BC, OTHER ==
[~2021-03-26] VITALS: Ht 165.1 cm; Wt 83.9 kg
[2021-03-26 08:06] VITALS: BP 143/69
--- NOTE | 2021-03-26 08:13 | NUR ---
Pain Clinic Assessment: 1. History of Osteoarthritis: SPINE History of Rheumatoid Arthritis: Not Applicable 2. Height: 5 ft. 5 in. 165.1 cm. Weight: 185.0 lb. oz. 83.916 kg. Patient's BMI: 30.8 3. Vital Signs: BP: 143/69 Pulse: 80 Resp: 20 Temp: 02 Sat: 100 ECG Mon: 4. Pain Intensity: 8 5. Fall Risk: Dizziness: N Needs help standing or walking: N Fallen in the last 3 months: N Fall risk comments: 6. Patient on Blood Thinner: None 7. History of Hypertension: N 8. Opioid Therapy greater than 6 weeks: Y Opiate Contract Signed: 06/19/20 9. Risk Assessment Tool Provided: LOW 10. Functional Assessment Tool: 11. Recreational Drug Use: Never Drug Type: Tobacco Use: Current Every Day Smoker Tobacco Type: Cigarettes Amount or Packs/day: How Many Years: Alcohol Use: Yes Frequency: Special Occasions Quant: 1-2
== END ==
LOC: PAIN 06:56
PROVIDERS: ATTEND Anesthesiology Pain Medicine
DX: M54.16 Radiculopathy, lumbar region (principal); M54.17 Radiculopathy, lumbosacral region; M79.602 Pain in left arm; F32.9 Major depressive disorder, single episode, unspecified; Z88.8 Allergy status to other drugs, medicaments and biological substances

== ENCOUNTER → 2021-05-21 | Outpatient (CLI) | payer BC, OTHER ==
[~2021-05-21] VITALS: Ht 165.1 cm; Wt 84.2 kg
[2021-05-21 08:29] VITALS: BP 115/67
--- NOTE | 2021-05-21 08:41 | NUR ---
Pain Clinic Assessment: 1. History of Osteoarthritis: SPINE History of Rheumatoid Arthritis: Not Applicable 2. Height: 5 ft. 5 in. 165.1 cm. Weight: 185.6 lb. oz. 84.188 kg. Patient's BMI: 30.9 3. Vital Signs: BP: 115/67 Pulse: 81 Resp: 16 Temp: 02 Sat: 100 ECG Mon: 4. Pain Intensity: 8 5. Fall Risk: Dizziness: N Needs help standing or walking: N Fallen in the last 3 months: N Fall risk comments: 6. Patient on Blood Thinner: None 7. History of Hypertension: N 8. Opioid Therapy greater than 6 weeks: Y Opiate Contract Signed: 06/19/20 9. Risk Assessment Tool Provided: LOW 10. Functional Assessment Tool: 11. Recreational Drug Use: Never Drug Type: Tobacco Use: Current Every Day Smoker Tobacco Type: Cigarettes Amount or Packs/day: 1/2PK /DAY How Many Years: Alcohol Use: No Frequency: Quant:
== END ==
LOC: PAIN 08:16
PROVIDERS: ATTEND Anesthesiology Pain Medicine
DX: M54.16 Radiculopathy, lumbar region (principal); M54.17 Radiculopathy, lumbosacral region; R20.0 Anesthesia of skin; F34.89 Other specified persistent mood disorders; Z88.8 Allergy status to other drugs, medicaments and biological substances; Z79.899 Other long term (current) drug therapy

== ENCOUNTER → 2021-07-16 | Outpatient (CLI) | payer BC, OTHER ==
[~2021-07-16] VITALS: Ht 165.1 cm; Wt 82.8 kg
[2021-07-16 08:50] VITALS: BP 119/70
--- NOTE | 2021-07-16 09:01 | NUR ---
Pain Clinic Assessment: 1. History of Osteoarthritis: SPINE History of Rheumatoid Arthritis: Not Applicable 2. Height: 5 ft. 5 in. 165.1 cm. Weight: 182.6 lb. oz. 82.827 kg. Patient's BMI: 30.4 3. Vital Signs: BP: 119/70 Pulse: 84 Resp: 16 Temp: 02 Sat: 99 ECG Mon: 4. Pain Intensity: 8 (3 WITH MED) 5. Fall Risk: Dizziness: N Needs help standing or walking: N Fallen in the last 3 months: N Fall risk comments: 6. Patient on Blood Thinner: None 7. History of Hypertension: N 8. Opioid Therapy greater than 6 weeks: Y Opiate Contract Signed: 06/19/20 9. Risk Assessment Tool Provided: LOW 10. Functional Assessment Tool: 11. Recreational Drug Use: Never Drug Type: Tobacco Use: Current Every Day Smoker Tobacco Type: Amount or Packs/day: How Many Years: Alcohol Use: No Frequency: Quant:
== END ==
LOC: PAIN 08:38
PROVIDERS: ATTEND Clinical Nurse Specialist Adult Health
DX: M54.16 Radiculopathy, lumbar region (principal); F34.89 Other specified persistent mood disorders; F17.200 Nicotine dependence, unspecified, uncomplicated; Z88.8 Allergy status to other drugs, medicaments and biological substances; Z79.899 Other long term (current) drug therapy